=== PATIENT | female | born 1975 ===

== ENCOUNTER 2018-04-29 11:21 | Emergency (ER) | payer OTHER ==
[2018-04-29 11:26] VITALS: BP 150/84; PULSE 70; RESP 18; TEMP 98.6; O2SAT 100
[2018-04-29] MEDS ORDERED: Lidocaine 1% Inj (20ml) INFIL STA (11:33)
--- NOTE | 2018-04-29 11:35 | C.PDOC ---
History Of Present Illness 42 y/o female presents to ED for evaluation of needle embedded to left ring finger sustained 40 minutes prior to arrival while at work. Patient denies active bleeding or numbness to hand. Time Seen by Provider: 04/29/18 11:29 Chief Complaint (Nursing): Finger,Hand,&Wrist History Per: Patient History/Exam Limitations: no limitations Onset/Duration Of Symptoms: Mins Current Symptoms Are (Timing): Still Present Quality: "Pain" Past Medical History Reviewed: Historical Data, Nursing Documentation, Vital Signs Vital Signs: Last Vital Signs Temp 98.6 F 04/29/18 11:24 Pulse 70 04/29/18 11:24 Resp 18 04/29/18 12:08 BP 150/84 04/29/18 11:24 Pulse Ox 100 04/29/18 12:07 - Medical History PMH: No Chronic Diseases Surgical History: No Surg Hx Family History: States: No Known Family Hx - Social History Hx Alcohol Use: No Hx Substance Use: No Review Of Systems Constitutional: Negative for: Fever, Chills Musculoskeletal: Positive for: Hand Pain Skin: Negative for: Rash, Bruising Physical Exam - Physical Exam Appears: Non-toxic, No Acute Distress Skin: Warm, Dry, No Rash Head: Atraumatic, Normacephalic Eye(s): bilateral: Normal Inspection Oral Mucosa: Moist Extremity: Normal ROM, Capillary Refill (<2 seconds), No Deformity, Other ( needle embedded to left 4th digit lateral border of nail and through fingeritp; no nail involvement) Pulses: Left Radial: Normal Neurological/Psych: Oriented x3, Normal Motor, Normal Sensation ED Course And Treatment O2 Sat by Pulse Oximetry: 100 (RA) Pulse Ox Interpretation: Normal Medical Decision Making Medical Decision Making: Patient with foreign body in fingerdigit. Tetanus administered. See procedure note. Patient tolerated well. 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 - Scribe Statement The provider has reviewed the documentation as recorded by the Scribe Jf Lindo All medical record entries made by the Scribe were at my direction and personally dictated by me. I have reviewed the chart and agree that the record accurately reflects my personal performance of the history, physical exam, medical decision making, and the department course for this patient. I have also personally directed, reviewed, and agree with the discharge instructions and disposition. Procedures - Foreign Body Removal Consent Obtained: verbal consent Site: left, hand (4th digit) Description of foreign body: needle Sedation/Analgesia: other (Digital block lidocaine 2%) Technique: removal with forceps Confirmed by:: direct visualization Complications:: None Post-procedure exam: Awake, alert Neurovascular: Normal distal pulse, Normal capillary, Distal light touch sensation intact, Distal motor function normal, No change from pre-procedure
[2018-04-29] MEDS ORDERED: Tdap Vaccine 0.5 ml Vial (10-64 yrs) IM ONE ×2 (11:56→12:04)
--- NOTE | 2018-04-29 12:12 | RAD ---
Date of service: 04/29/2018 PROCEDURE: Left ring finger radiographs. HISTORY: Foreign body to finger COMPARISON: None. TECHNIQUE: AP radiograph of the left hand, as well as spot oblique and lateral images of left ring finger were obtained. FINDINGS: LEFT RING FINGER: There is a linear metallic foreign body seen with ulnar aspect distal soft tissues 4th finger. This focus measures approximately 2.4 cm in length and tapers from base to tip (approximately 2.1 mm to 1 mm). No evidence of acute displaced fracture nor dislocation. No other opaque foreign bodies are identified. No evidence of subcutaneous emphysema. Incidental note made of a small benign-appearing cyst within the head 3rd metacarpal JOINTS: Normal. SOFT TISSUES: As above. OTHER FINDINGS: None. IMPRESSION: linear metallic foreign body seen with ulnar aspect distal soft tissues 4th finger as detailed above. No evidence of acute displaced fracture nor dislocation. No additional foreign bodies are identified. .
== END 2018-04-29 12:09 | disposition home or self-care (01) ==
LOC: C.ER 11:21
DX: S60.455A Superficial foreign body of left ring finger, initial encounter (principal); W27.3XXA Contact with needle (sewing), initial encounter; Y92.89 Other specified places as the place of occurrence of the external cause; Y99.0 Civilian activity done for income or pay